=== PATIENT | female | born 1940 | race American Indian/Alaskan Native ===

== ENCOUNTER 2017-01-03 08:14 | Outpatient (CLI) | payer MEDICARE ==
--- NOTE | 2017-01-03 09:05 | Mammography Report ---
BILATERAL MAMMOGRAM: FINDINGS: The breast tissue is heterogeneously dense, which could obscure detection of small masses (approximately 50%-75% glandular). No mass, distortion, suspicious calcification, or skin change is seen. No significant change when compared to exams dating back to 2012. CAD was utilized. IMPRESSION: Negative mammogram. There is no mammographic evidence of malignancy. RECOMMENDATION: Follow-up per ACS guidelines. BI-RADS CATEGORY: 1 = Negative ACR BI-RADS MAMMOGRAPHIC CODES: 0 = Needs additional imaging evaluation; 1 = Negative; 2 = Benign; 3 = Probably benign; 4 = Suspicious; 5 = Malignant; 6 = Known biopsy-proven malignancy COMMENT: 1. Dense breast tissue, i.e., adenosis, fibrocystic changes, etc., may obscure an underlying neoplasm. 2. Approximately 10% of cancers are not detected with mammography. 3. A negative mammography report should not delay biopsy if a clinically suspicious mass is present. COMMENT: Patient follow-up letters are generated in [employer].
== END 2017-01-03 08:15 | disposition home or self-care (01) ==
LOC: MAMMO 08:14
PROVIDERS: ATTEND Family Medicine
DX: Z12.31 Encounter for screening mammogram for malignant neoplasm of breast (principal)
CPT/HCPCS: 77067; G0202

== ENCOUNTER 2017-02-02 13:53 | Outpatient (CLI) | payer MEDICARE ==
--- NOTE | 2017-02-02 14:34 | XRay Report ---
LEFT SHOULDER: History: Left shoulder pain. Moderate osteoarthritic changes are identified at the glenohumeral joint and a.c. joint. There is no evidence for fracture, dislocation or ligamentous injury. The soft tissues are unremarkable. IMPRESSION: Osteoarthritic changes.
--- NOTE | 2017-02-02 15:00 | XRay Report ---
CERVICAL SPINE RADIOGRAPHS INDICATION: Cervicalgia. COMPARISON: None similar. FINDINGS: AP, lateral and oblique cervical spine radiographs demonstrate partly obscured dens superiorly due to overlying skull. Normal remainder image dens with symmetric lateral masses. Intact cervical articulation, predental space and prevertebral soft tissues. Normal airway. Normal vertebral body stature, alignment and disc heights, though degenerative osteophytes noted from C3-C7. Bilateral neural foraminal narrowing also suspected, more so at C3-C4 and C4-C5 levels. Clear visualized lung apices. Mild aortic knob calcifications. CONCLUSION: Multilevel cervical spondylosis, as described. Thank you for the opportunity to participate in this patient's care.
== END 2017-02-02 13:54 | disposition home or self-care (01) ==
LOC: XRAY 13:53
PROVIDERS: ATTEND Family Medicine
DX: M47.892 Other spondylosis, cervical region (principal); M19.012 Primary osteoarthritis, left shoulder; M25.78 Osteophyte, vertebrae; I70.0 Atherosclerosis of aorta
CPT/HCPCS: 72050

== ENCOUNTER 2018-07-17 13:07 | Outpatient (CLI) | payer MEDICARE ==
--- NOTE | 2018-07-17 14:22 | Mammography Report ---
Bilateral mammogram: Compared to 01/03/17. CAD study utilized. Findings: Scattered glandular parenchyma bilaterally. No distinct mass or microcalcification. Benign axillary nodes. Impression: Benign findings. Annual followup recommended. BI-RADS CATEGORY: 2 = Benign ACR BI-RADS MAMMOGRAPHIC CODES: 0 = Needs additional imaging evaluation; 1 = Negative; 2 = Benign; 3 = Probably benign; 4 = Suspicious; 5 = Malignant; 6 = Known biopsy-proven malignancy COMMENT: 1. Dense breast tissue, i.e., adenosis, fibrocystic changes, etc., may obscure an underlying neoplasm. 2. Approximately 10% of cancers are not detected with mammography. 3. A negative mammography report should not delay biopsy if a clinically suspicious mass is present. COMMENT: Patient follow-up letters are generated in [employer].
== END 2018-07-17 13:08 | disposition home or self-care (01) ==
LOC: MAMMO 13:07
PROVIDERS: ATTEND Family Medicine
DX: Z12.31 Encounter for screening mammogram for malignant neoplasm of breast (principal)
CPT/HCPCS: 77067

== ENCOUNTER 2019-07-18 10:03 | Outpatient (CLI) | payer OTHER, MEDICARE ==
--- NOTE | 2019-07-18 12:06 | Mammography Report ---
DIGITAL SCREENING MAMMOGRAM WITH CAD, 07/18/2019 INDICATION: Routine screening mammography. TECHNIQUE: Digital bilateral 2D mammography was obtained in the craniocaudal and mediolateral obliq ue projections. This examination was interpreted with the benefit of Computer-Aided Detection analysi s. COMPARISON: 07/17/2018 and 01/03/2017 FINDINGS: Breast Density: The breasts are heterogeneously dense, which may obscure small masses. There is no evidence of dominant mass, suspicious calcifications or architectural distortion in eithe r breast. IMPRESSION: No mammographic evidence of malignancy. Follow up recommendation: Routine yearly BI-RADS Category 1: Negative. A "normal" or negative report should not discourage follow up or biopsy of a clinically significant f inding. A written summary of these findings will be mailed to the patient. The patient will be entered into a mammography reporting system which will generate a reminder letter for the patient's next appointmen t at the appropriate interval. The [employer] recommends yearly mammograms starting at age 40 and continuing as l jeyson as a woman is in good health. Breast MRI is recommended for women with an approximate 20-25% or greater lifetime risk of breast cancer, including women with a strong family history of breast or ova tiffanie cancer or who have been treated for Hodgkin's disease. Signer Name: Brando Toro MD Signed: 07/18/2019 12:01 PM Workstation Name: [id number]
== END 2019-07-18 10:04 | disposition home or self-care (01) ==
LOC: MAMMO 10:03
DX: Z12.31 Encounter for screening mammogram for malignant neoplasm of breast (principal)
CPT/HCPCS: 77067

== ENCOUNTER 2020-07-21 09:15 | Outpatient (CLI) | payer OTHER, MEDICARE ==
--- NOTE | 2020-07-21 19:12 | Mammography Report ---
DIGITAL SCREENING MAMMOGRAM WITH CAD, 07/21/2020 CLINICAL INFORMATION / INDICATION: Routine screening TECHNIQUE: Digital bilateral 2D mammography was obtained in the craniocaudal and mediolateral obliqu e projections. This examination was interpreted with the benefit of Computer-Aided Detection analysis . COMPARISON: 07/18/2019 FINDINGS: Breast Density: The breasts are heterogeneously dense, which may obscure small masses. No dominant mass, suspicious calcifications, or architectural distortion in either breast. IMPRESSION: No mammographic evidence of malignancy. Follow up recommendation: Routine yearly BI-RADS Category 1: Negative. A "normal" or negative report should not discourage follow up or biopsy of a clinically significant f inding. A written summary of these findings will be mailed to the patient. The patient will be entered into a mammography reporting system which will generate a reminder letter for the patient's next appointmen t at the appropriate interval. The [employer] recommends yearly mammograms starting at age 40 and continuing as l jeyson as a woman is in good health. Breast MRI is recommended for women with an approximate 20-25% or greater lifetime risk of breast cancer, including women with a strong family history of breast or ova tiffanie cancer or who have been treated for Hodgkin's disease. Signer Name: Barrett Flores MD Signed: 07/21/2020 7:08 PM Workstation Name: [email or web address]
== END 2020-07-21 09:16 | disposition home or self-care (01) ==
LOC: MAMMO 09:15
PROVIDERS: ATTEND Nurse Practitioner
DX: Z12.31 Encounter for screening mammogram for malignant neoplasm of breast (principal)
CPT/HCPCS: 77067

== ENCOUNTER 2021-08-13 11:30 | Outpatient (CLI) | payer MEDICARE ==
--- NOTE | 2021-08-14 13:38 | Mammography Report ---
DIGITAL SCREENING MAMMOGRAM WITH CAD, 08/13/2021 CLINICAL INFORMATION / INDICATION: Routine screening mammography. SCREENING MAMMOGRAM TECHNIQUE: Digital bilateral 2D mammography was obtained in the craniocaudal and mediolateral obliqu e projections. This examination was interpreted with the benefit of Computer-Aided Detection analysis . COMPARISON: 07/21/20, 07/18/19 FINDINGS: Breast Density: The breasts are heterogeneously dense, which may obscure small masses. No dominant mass, suspicious calcifications, or architectural distortion in either breast. IMPRESSION: No mammographic evidence of malignancy. No significant change. Follow up recommendation: Routine yearly BI-RADS Category 1: NEGATIVE A "normal" or negative report should not discourage follow up or biopsy of a clinically significant f inding. A written summary of these findings will be mailed to the patient. The patient will be entered into a mammography reporting system which will generate a reminder letter for the patient's next appointmen t at the appropriate interval. The [employer] recommends yearly mammograms starting at age 40 and continuing as l jeyson as a woman is in good health. Breast MRI is recommended for women with an approximate 20-25% or greater lifetime risk of breast cancer, including women with a strong family history of breast or ova tiffanie cancer or who have been treated for Hodgkin's disease. Signer Name: Yue Garsia MD Signed: 08/14/2021 1:34 PM Workstation Name: [id number]
== END 2021-08-13 11:31 | disposition home or self-care (01) ==
LOC: MAMMO 11:30
PROVIDERS: ATTEND Nurse Practitioner
DX: Z12.31 Encounter for screening mammogram for malignant neoplasm of breast (principal)
CPT/HCPCS: 77067